=== PATIENT | male | born 1945 | race Caucasian/White ===

== ENCOUNTER 2024-03-09 16:11 | Emergency (ER) | payer MEDICARE ==
[~2024-03-09] VITALS: Ht 177.8 cm; Wt 90.9 kg
[2024-03-09 16:19] VITALS: BP 134/68; PULSE 76; TEMP 98; O2SAT 99
[2024-03-09] MEDS ORDERED: HYDR-3973 PO (17:51)
[2024-03-09 18:08] VITALS: RESP 14
[2024-03-09] MEDS: HYDROcodone/acetaminophen 10/325mg tab PO ONE (18:08)
== END 2024-03-09 18:20 | disposition home or self-care (01) ==
LOC: ER 16:12
DX: M25.462 Effusion, left knee (principal); M25.572 Pain in left ankle and joints of left foot; M25.562 Pain in left knee; M19.90 Unspecified osteoarthritis, unspecified site; Z88.8 Allergy status to other drugs, medicaments and biological substances; Z96.652 Presence of left artificial knee joint; W18.30XA Fall on same level, unspecified, initial encounter; Y93.89 Activity, other specified; Y92.89 Other specified places as the place of occurrence of the external cause; Y99.8 Other external cause status
CPT/HCPCS: 73564; 73610; 99284